=== PATIENT | female | born 1930 | race Caucasian/White ===

== ENCOUNTER 2016-10-08 13:23 | Inpatient (IN) | payer MEDICARE ==
[~2016-10-08] VITALS: Ht 175.3 cm; Wt 67.4 kg
[2016-10-08] MEDS ORDERED: IV NS 0.9% 1,000 ML BAG IV ONE (13:30)
[2016-10-08] MEDS ORDERED: IV SET PRIMARY 1 EA INFUS.SET MC ONE ×2 (13:37→15:28)
[2016-10-08] MEDS ORDERED: IV NS 0.9% 500 ML IV ONE ×2 (13:37→15:28)
[2016-10-08 14:21] LABS: INR 1.02 (0.87-1.13); PROTHROMBIN TIME 10.7 SECS (9.5-12.7)
[2016-10-08 14:23] LABS: ALBUMIN 2.9 g/dL (3.4-5.0); BILIRUBIN,DIRECT 0.1 mg/dL (0.0-0.2); BILIRUBIN,TOTAL 0.5 mg/dL (0.2-1.0); CALCIUM, SERUM 8.6 mg/dL (8.5-10.1); CREATININE 1.2 mg/dL (0.6-1.3); INDIRECT BILIRUBIN 0.4 mg/dL (0.0-1.1)
[2016-10-08 14:24] LABS: TROPONIN I 0.025 ng/mL (0.00-0.056)
[2016-10-08 14:45] LABS: BASOPHILS # (AUTO) 0.1 /CMM (0.0-0.2); BASOPHILS % (AUTO) 1.2 % (0.0-2.0); DIFF TOTAL % 100 %; EOSINOPHILS % (AUTO) 0.4 % (0.0-6.0); HEMATOCRIT 39 % (33-45); HEMOGLOBIN 12.6 g/dL (11.5-14.8); LYMPHOCYTES # (AUTO) 0.6 /CMM (0.8-4.8); LYMPHOCYTES % (AUTO) 5.9 % (20.0-44.0); MEAN CORPUSCULAR HEMOGLOBIN 26 PG (26.0-33.0); MEAN CORPUSCULAR HGB CONC 32 g/dl (31.0-36.0); MEAN CORPUSCULAR VOLUME 81 fL (82-100); MONOCYTES # (AUTO) 0.8 /CMM (0.1-1.30); MONOCYTES % (AUTO) 7.3 % (2.0-12.0); NEUTROPHILS # (AUTO) 9.5 /CMM (1.8-8.9); NEUTROPHILS % (AUTO) 85.2 % (43.0-81.0); PLATELET COUNT (AUTO) 173 /CMM (150-450); RED BLOOD CELL COUNT(AUTO) 4.84 MIL/uL (4.0-5.2)
[2016-10-08] MEDS ORDERED: IV NS 0.9% 500 ML BAG IV ONE (15:30)
[2016-10-08] MEDS ORDERED: IV NS 0.9% 250 ML IV ONE (16:01)
[2016-10-08] MEDS ORDERED: CT SWABBABLE VALVE TRANS SET 1 EA INFUS.SET MC ONE (16:01)
[2016-10-08] MEDS ORDERED: IOHEXOL-350 100 ML VIAL IV ONE (16:01)
[2016-10-08 16:16] LABS: KETONES,URINE 15 (NEGATIVE); LEUKOCYTE ESTERASE ,URINE Negative (NEGATIVE); PH,URINE 5.5 (5.0-8.0)
[2016-10-08 16:17] LABS: ADD UA MICROSCOPIC YES
[2016-10-08 16:21] LABS: ADD URINE CULTURE NO; WBC,URINE 0-2 /HPF (0-3)
[2016-10-08] MEDS ORDERED: IV SET PRIMARY PUMP SET 1 EA INFUS.SET MC ONE ×2 (17:27→21:16)
[2016-10-08] MEDS ORDERED: LEVOFLOXACIN 750 MG /D5W 150ML 150 ML IV ONE ×2 (17:27→17:30)
[2016-10-08 20:30] VITALS: BP 142/84
[2016-10-08] MEDS ORDERED: MAGNESIUM HYDROXIDE 30 ML UDC PO PRN (20:30)
[2016-10-08] MEDS ORDERED: ZOLPIDEM TARTRATE 5 MG TABLET PO PRN (20:30)
[2016-10-08] MEDS ORDERED: HYDROCODONE/APAP 5/325MG 1 EACH TABLET PO PRN (20:30)
[2016-10-08] MEDS ORDERED: Z GUARD REMEDY 2 OZ OINT TP PRN (20:30)
[2016-10-08] MEDS ORDERED: ONDANSETRON HCL/PF 4 MG/2 ML VIAL IVP PRN (20:30)
[2016-10-08] MEDS ORDERED: MAG HYDROX/AL HYDROX/SIMETH 30 ML UDC PO PRN (20:30)
[2016-10-08] MEDS ORDERED: ACETAMINOPHEN 325 MG TABLET PO PRN (20:30)
[2016-10-08] MEDS ORDERED: IV NS 0.9% 1,000 ML ONE (21:15)
[2016-10-08] MEDS ORDERED: LEVOFLOXACIN 500 MG /D5W 100ML 500 MG in PREMIX 1 EA IV SCH (21:30)
[2016-10-08] MEDS: IV NS 0.9% 1,000 ML IV PRN (21:43)
[2016-10-09] VITALS (7 sets, daily range): BP systolic 142–166; BP diastolic 82–90
[2016-10-09 08:33] LABS: BASOPHILS % (AUTO) 0.1 % (0.0-2.0); DIFF TOTAL % 100 %; EOSINOPHILS # (AUTO) 0.1 /CMM (0.0-0.7); EOSINOPHILS % (AUTO) 1.2 % (0.0-6.0); HEMATOCRIT 35 % (33-45); HEMOGLOBIN 11.6 g/dL (11.5-14.8); LYMPHOCYTES # (AUTO) 0.8 /CMM (0.8-4.8); LYMPHOCYTES % (AUTO) 9.6 % (20.0-44.0); MEAN CORPUSCULAR HEMOGLOBIN 26 PG (26.0-33.0); MEAN CORPUSCULAR HGB CONC 33 g/dl (31.0-36.0); MEAN CORPUSCULAR VOLUME 80 fL (82-100); MONOCYTES # (AUTO) 0.8 /CMM (0.1-1.30); MONOCYTES % (AUTO) 9.7 % (2.0-12.0); NEUTROPHILS # (AUTO) 6.7 /CMM (1.8-8.9); NEUTROPHILS % (AUTO) 79.4 % (43.0-81.0); PLATELET COUNT (AUTO) 165 /CMM (150-450); WHITE BLOOD COUNT (AUTO) 8.5 K/uL (4.3-11.0)
[2016-10-09 08:44] LABS: CALCIUM, SERUM 8.2 mg/dL (8.5-10.1); CREATININE 0.8 mg/dL (0.6-1.3); PHOSPHORUS 2.8 mg/dL (2.5-4.9); POTASSIUM 3.6 mmol/L (3.5-5.1)
[2016-10-09] MEDS: PANTOPRAZOLE 40 MG TABLET.DR PO SCH (10:02)
[2016-10-09] MEDS ORDERED: SECONDARY IV SET 1 EA INFUS.SET MC ONE (12:34)
[2016-10-09] MEDS: IV NS 0.9% 1,000 ML IV PRN (12:38)
[2016-10-09] MEDS ORDERED: Magnesium 1GM/D5W 100ML PREMIX PIGGYBACK IV ONE (13:00)
[2016-10-09] MEDS ORDERED: Magnesium 1GM/D5W 100ML PREMIX 100 ML IV SCH (13:00)
[2016-10-10] VITALS (8 sets, daily range): BP systolic 122–148; BP diastolic 68–93
[2016-10-10 07:04] LABS: CALCIUM, SERUM 8.4 mg/dL (8.5-10.1); CREATININE 0.8 mg/dL (0.6-1.3); POTASSIUM 3.3 mmol/L (3.5-5.1)
[2016-10-10] MEDS: PANTOPRAZOLE 40 MG TABLET.DR PO SCH (08:45)
[2016-10-10] MEDS ORDERED: LEVO500T15 PO (13:54)
[2016-10-10] MEDS ORDERED: PANT40TA2 PO (13:54)
[2016-10-10] MEDS ORDERED: POTASSIUM CHLORIDE 20 MEQ TAB.PRT.SR PO ONE (15:00)
[2016-10-10] MEDS ORDERED: LEVOFLOXACIN 750 MG /D5W 150ML 750 MG in PREMIX 1 EA IV SCH (21:00)
== END 2016-10-10 15:50 | disposition home health service (06) | DRG 193 ==
LOC: ER 13:25 → TELE 20:31
PROVIDERS: ADMIT Internal Medicine; ATTEND Internal Medicine
DX: J15.9 Unspecified bacterial pneumonia (principal); E43 Unspecified severe protein-calorie malnutrition; N17.0 Acute kidney failure with tubular necrosis; E87.6 Hypokalemia; I10 Essential (primary) hypertension; Z86.73 Personal history of transient ischemic attack (TIA), and cerebral infarction without residual deficits; E88.09 Other disorders of plasma-protein metabolism, not elsewhere classified; M62.50 Muscle wasting and atrophy, not elsewhere classified, unspecified site; Z68.21 Body mass index [BMI] 21.0-21.9, adult; Z90.49 Acquired absence of other specified parts of digestive tract; R55 Syncope and collapse; K44.9 Diaphragmatic hernia without obstruction or gangrene
CPT/HCPCS: 36415; 71010-TC; 80048-TC; 80061-TC; 80076-TC; 81000-TC; 82962-TC; 83605-TC; 83735-TC; 84100-TC; 84484-TC; 85025-TC; 85730-TC; 87040-TC; 87081-TC; 87400; 97001-TC; 97003-TC; 97116-TC; 97530-TC; A4216; J1956; J3475; J7030; J7040; J7050; Q9967; Z7610

== ENCOUNTER 2018-05-18 11:00 | Emergency (ER) | payer MEDICARE, OTHER ==
[~2018-05-18] VITALS: Ht 167.6 cm; Wt 63.5 kg
[~2018-05-18 11:00] MED LIST: LEVO500T75 PO; PANT40TA2 PO
[2018-05-18 11:05] VITALS: BP 155/84
--- NOTE | 2018-05-18 11:05 | NUR ---
PT BIB CAREGIVER TO ER BED 03. PRESENTS W// LFA SKIN TEAR AND R FOOT PAIN S/P FALL. PT STATES SHE THINKS SHE HAD LOTS OF ORANGE JUICE GOT DIZZY AND LOST BALANCE. PT DENIES KO. AAOX3. STABLE VITALS AWAITING MD GUSMAN.
--- NOTE | 2018-05-18 12:07 | NUR ---
CY GUERIN AT BEDSIDE FOR EVAL.
[2018-05-18] MEDS ORDERED: TDAP [DIPH/PERTUSSIS/TET] 0.5 ML VIAL IM ONE ×2 (12:24→12:30)
[2018-05-18] MEDS ORDERED: LIDOCAINE 1%-EPI 1:100,000 20 ML VIAL TP ONE (12:30)
[2018-05-18] MEDS ORDERED: LET SOLN TOPICAL 8 ML UDC TP ONE ×2 (12:47→19:00)
[2018-05-18] MEDS ORDERED: ACETAMINOPHEN ES 500 MG TABLET PO ONE (13:00)
[2018-05-18] MEDS ORDERED: LIDOCAINE 1%-EPI 1:100,000 20 ML VIAL ONE (13:32)
== END 2018-05-18 14:21 | disposition home or self-care (01) ==
LOC: ER 11:03
DX: S41.112A Laceration without foreign body of left upper arm, initial encounter (principal); I10 Essential (primary) hypertension; Z86.73 Personal history of transient ischemic attack (TIA), and cerebral infarction without residual deficits; W08.XXXA Fall from other furniture, initial encounter; Y93.89 Activity, other specified; Y92.092 Bedroom in other non-institutional residence as the place of occurrence of the external cause; Y99.8 Other external cause status
CPT/HCPCS: 12004; 90471; 90715; 99283; A4606; A6402; A6403; J3490; Z7610

== ENCOUNTER 2018-05-21 11:19 | Emergency (ER) | payer MEDICARE, OTHER ==
[~2018-05-21] VITALS: Ht 162.6 cm; Wt 58.1 kg
[2018-05-21 11:27] VITALS: BP 123/68
== END 2018-05-21 13:04 | disposition home or self-care (01) ==
LOC: ER 11:20
DX: S92.511A Displaced fracture of proximal phalanx of right lesser toe(s), initial encounter for closed fracture (principal); I10 Essential (primary) hypertension; Z86.73 Personal history of transient ischemic attack (TIA), and cerebral infarction without residual deficits; Z88.2 Allergy status to sulfonamides; X58.XXXA Exposure to other specified factors, initial encounter; Y93.89 Activity, other specified; Y92.89 Other specified places as the place of occurrence of the external cause; Y99.8 Other external cause status
CPT/HCPCS: 73630; 99284; A4606; Z7610

== ENCOUNTER → 2018-06-01 | Emergency (ER) | payer MEDICARE, OTHER ==
[~2018-06-01] VITALS: Ht 175.3 cm; Wt 65.8 kg
[2018-06-01 15:49] VITALS: BP 126/81
--- NOTE | 2018-06-01 16:32 | NUR ---
VERBAL DISCHARGE INSTRUCTIONS GIVEN BY PROVIDER, NO WRITTEN ACI NEEDED PER PROVIDER
== END | disposition home or self-care (01) ==
LOC: ER 15:45
DX: S51.812D Laceration without foreign body of left forearm, subsequent encounter (principal); I10 Essential (primary) hypertension; Z86.73 Personal history of transient ischemic attack (TIA), and cerebral infarction without residual deficits; Z88.2 Allergy status to sulfonamides; X58.XXXD Exposure to other specified factors, subsequent encounter
CPT/HCPCS: 99281; A4606; Z7502; Z7610

== ENCOUNTER 2018-12-12 22:34 | Inpatient (IN) | payer MEDICARE, OTHER ==
[~2018-12-12] VITALS: Ht 175.3 cm; Wt 62.6 kg
--- NOTE | 2018-12-12 22:34 | NUR ---
TO BED 1 BIB PARAMEDICS C/O SYNCOPE NOTED SCALP LACERATION TO POSTERIOR HEAD AND ORAL TRAUMA, FIELD BS 133. RECEIVE PT ON HARD CERVICAL COLLAR IN PLACE TAG MAKER. PT AAOX4 NO ACUTE DISTRESS NOTED, RESP EVEN AND UNLABORED. PUPILS PERRLA, PT ABLE TO MOVE ALL EXTREMITIES WELL WITH BILATERAL EQUAL HAND UMBRELLA TIPPER. PLACE PT ON CARDIAC MONITORING, CONTINUOUS POX. PENDING ER MD GUSMAN. CALL LIGHT WITHIN REACH.
--- NOTE | 2018-12-12 22:54 | NUR ---
ER MD AT BEDSIDE TO EVAL PT WITH ORDERS RECEIVED. WILL CARRY OUT ORDERS.
--- NOTE | 2018-12-12 23:11 | NUR ---
CALLED NURSING SUP. FOR TELE BED
--- NOTE | 2018-12-12 23:16 | NUR ---
ARC CUTTER PLASMA ARC AT BEDSIDE FOR BLOOD DRAW.
[2018-12-12] MEDS ORDERED: TDAP [DIPH/PERTUSSIS/TET] 0.5 ML VIAL IM ONE (23:30)
[2018-12-12 23:44] LABS: EOSINOPHILS % (AUTO) 6.5 % (0.0-6.0); HEMATOCRIT 37 % (33-45); LYMPHOCYTES # (AUTO) 1.5 /CMM (0.8-4.8); LYMPHOCYTES % (AUTO) 30.1 % (20.0-44.0); MEAN CORPUSCULAR HGB CONC 32 g/dl (31.0-36.0); MEAN CORPUSCULAR VOLUME 83 fL (82-100); MONOCYTES # (AUTO) 0.7 /CMM (0.1-1.30); NEUTROPHILS # (AUTO) 2.4 /CMM (1.8-8.9); NEUTROPHILS % (AUTO) 49.4 % (43.0-81.0); PLATELET COUNT (AUTO) 115 /CMM (150-450); RED BLOOD CELL COUNT(AUTO) 4.52 MIL/uL (4.0-5.2); WHITE BLOOD COUNT (AUTO) 4.9 K/uL (4.3-11.0)
--- NOTE | 2018-12-12 23:46 | NUR ---
PT WAS GIVEN TDAP ON PREVIOUS ADMISSION 05/18/2018.
[2018-12-12 23:52] LABS: CALCIUM, SERUM 8.9 mg/dL (8.5-10.1); CREATININE 1.1 mg/dL (0.6-1.3); GLUCOSE 118 mg/dL (74-106); UREA NITROGEN, BLOOD 28 mg/dL (7-18)
[2018-12-12 23:57] LABS: CARBON DIOXIDE 27 mmol/L (21-32); CHLORIDE 104 mmol/L (98-107); POTASSIUM 4.2 mmol/L (3.5-5.1); SODIUM SERUM 138 mmol/L (136-145)
[2018-12-13] MEDS ORDERED: IV NS 0.9% 500 ML BAG IV ONE (01:30)
[2018-12-13] MEDS ORDERED: ASPIRIN 81 MG TAB.CHEW PO ONE (01:30)
--- NOTE | 2018-12-13 01:55 | NUR ---
REPORT CALLED TO ENLISTED ADVISOR ARVI. WILL TRANSPORT PT VIA ACLS PROTOCOL.
[2018-12-13] MEDS ORDERED: ASPIRIN 81 MG TAB.CHEW ONE (02:12)
--- NOTE | 2018-12-13 02:16 | NUR ---
ER MD AT BEDSIDE TALKING TO PT REGARDING CT, LAB RESULTS AND HOSPITAL ADMISSION.
[2018-12-13 02:40] VITALS: BP 149/91
--- NOTE | 2018-12-13 02:40 | NUR ---
RECEIVED PATIENT FROM ER FOR DX SYNCOPE. AO X 3, ABLE TO MAKE NEEDS KNOWN. NO ACUTE DISTRESS NOTED. DENIES ANY PAIN AT THIS TIME. TELE READING SINUS RHYTHM. IV SITE PATENT, INTACT; FLUSHED. SKIN ASSESSMENT DONE. SAFETY REMINDERS GIVEN. ORIENTATION TO ROOM AND UNIT GIVEN TO PATIENT. ON LOW BED WITH BILATERAL UPPER SIDE RAILS UP. CALL MAYO WITHIN EASY REACH. WILL CONTINUE TO MONITOR.
[2018-12-13 02:45] VITALS: BP 149/91
[2018-12-13 04:00] VITALS: BP 110/73
--- NOTE | 2018-12-13 06:00 | NUR ---
PATIENT IN BED ASLEEP, EASILY AROUSABLE. RESPIRATIONS EVEN. NO SIGNS OF PAIN NOTED. NEEDS ATTENDED. SAFETY PRECAUTIONS AND COMFORT MEASURE IN PLACE. WILL GIVE REPORT TO DAY SHIFT FOR CONTINUITY OF CARE.
[2018-12-13] MEDS ORDERED: IV NS 0.9% 1,000 ML IV PRN (07:22)
[2018-12-13] MEDS ORDERED: PANTOPRAZOLE 40 MG TABLET.DR PO SCH (07:30)
--- NOTE | 2018-12-13 07:45 | NUR ---
Tele/RN - Assessment Patient awake, A/O x 3, admitted for Syncope/GLF, states feeling better, denies chest pain, no c/o dizziness, not in any form distress, tolerating room air, tele shows SR. Skin is intact except for BLE, BUE and chin bruising. Patient is ambulatory with assist/FWW. Started on NS at 125 ml/hr to maintain hydration. All needs attended. Fall and aspiration precautions maintained. Will continue with current medical management.
[2018-12-13 07:50] VITALS: BP_SYST 123; BP_SYST 134; BP_DIAS 63; BP_DIAS 64; BP_DIAS 82
[2018-12-13 08:00] VITALS: BP 134/82
[2018-12-13 08:01] LABS: BASOPHILS % (AUTO) 0.8 % (0.0-2.0); EOSINOPHILS % (AUTO) 4.6 % (0.0-6.0); HEMATOCRIT 33 % (33-45); LYMPHOCYTES # (AUTO) 0.9 /CMM (0.8-4.8); LYMPHOCYTES % (AUTO) 16.3 % (20.0-44.0); MEAN CORPUSCULAR HGB CONC 33 g/dl (31.0-36.0); MEAN CORPUSCULAR VOLUME 83 fL (82-100); MONOCYTES # (AUTO) 0.5 /CMM (0.1-1.30); MONOCYTES % (AUTO) 8.2 % (2.0-12.0); NEUTROPHILS # (AUTO) 3.9 /CMM (1.8-8.9); NEUTROPHILS % (AUTO) 70.1 % (43.0-81.0); PLATELET COUNT (AUTO) 113 /CMM (150-450); RED BLOOD CELL COUNT(AUTO) 4.05 MIL/uL (4.0-5.2); WHITE BLOOD COUNT (AUTO) 5.5 K/uL (4.3-11.0)
[2018-12-13 08:10] LABS: CALCIUM, SERUM 8.5 mg/dL (8.5-10.1); CARBON DIOXIDE 27 mmol/L (21-32); CHLORIDE 108 mmol/L (98-107); CREATININE 0.9 mg/dL (0.6-1.3); GLUCOSE 96 mg/dL (74-106); POTASSIUM 4.3 mmol/L (3.5-5.1); SODIUM SERUM 141 mmol/L (136-145); UREA NITROGEN, BLOOD 24 mg/dL (7-18)
[2018-12-13 08:16] LABS: ALBUMIN 3.1 g/dL (3.4-5.0); ALKALINE PHOSPHATASE 71 U/L (46-116); ASPARTATE AMINOTRANSFERASE 25 U/L (15-37); BILIRUBIN,TOTAL 0.3 mg/dL (0.2-1.0); MAGNESIUM 2.1 mg/dL (1.8-2.4); PHOSPHORUS 3.4 mg/dL (2.5-4.9)
[2018-12-13 08:33] LABS: ALANINE AMINOTRANSFERASE 20 U/L (12-78)
[2018-12-13] MEDS ORDERED: ASPIRIN 81 MG TAB.CHEW PO SCH (09:00)
[2018-12-13] MEDS ORDERED: TOBRAMYCIN/DEXAMETH OPHTH DORPS 2.5 ML BOTTLE EACHEYE SCH (10:26)
[2018-12-13] MEDS ORDERED: TOBR2.5D EACHEYE ×2 (10:46→10:47)
[2018-12-13] MEDS ORDERED: ATOR10TA PO (10:46)
--- NOTE | 2018-12-13 11:49 | NUR ---
Tele/RN - Discharge Patient discharged home in stable condition, afebrile, denies any weakness/dizziness, ambulatory with assist, no c/o chest pain, A/O x 4. Reviewed discharge instructions with patient and caregiver John both verbalized full understanding of all teachings including medications and follow-up care with her PCP in one to two weeks. Reviewed instructions to patient to seek immediate medical attention for worsening of symptoms, chest pain, shortness of breath, fever, confusion, weakness, fatigue, dizziness, or any other emergent medical concerns. All belongings with patient and she deny any missing items. Patient refused photos to be taken of skin. Saline lock on the RFA removed with catheter tip intact, no redness, no swelling at the site. Discharge paperwork signed and copies were given per protocol. Accompanied to the lobby via wheelchair by TRIM MACHINE OPERATOR and transported via private car with caregiver.
[2018-12-13] MEDS ORDERED: ATORVASTATIN 10 MG TABLET PO SCH (22:00)
== END 2018-12-13 11:59 | disposition home or self-care (01) | DRG 682 ==
LOC: ER 22:35 → TELE 12-13 01:39
PROVIDERS: ADMIT Nurse Practitioner Acute Care; ATTEND Nurse Practitioner Acute Care
DX: N17.9 Acute kidney failure, unspecified (principal); I21.A1 Myocardial infarction type 2; E86.0 Dehydration; I10 Essential (primary) hypertension; I25.10 Atherosclerotic heart disease of native coronary artery without angina pectoris; E78.5 Hyperlipidemia, unspecified; R32 Unspecified urinary incontinence; Z86.73 Personal history of transient ischemic attack (TIA), and cerebral infarction without residual deficits; K21.9 Gastro-esophageal reflux disease without esophagitis; J44.9 Chronic obstructive pulmonary disease, unspecified; Z88.2 Allergy status to sulfonamides; Z79.899 Other long term (current) drug therapy; I25.2 Old myocardial infarction; D69.6 Thrombocytopenia, unspecified; F03.90 Unspecified dementia, unspecified severity, without behavioral disturbance, psychotic disturbance, mood disturbance, and anxiety; H10.9 Unspecified conjunctivitis
CPT/HCPCS: 36415; 70450-TC; 71045-TC; 72125-TC; 80048-TC; 80053-TC; 83735-TC; 84100-TC; 84484-TC; 85025-TC; 85730-TC; 87081-TC; 93307-TC; A6402; A6403; G0378; J7030; J7040

== ENCOUNTER 2018-12-18 16:14 | Inpatient (IN) | payer MEDICARE, OTHER ==
[~2018-12-18] VITALS: Ht 175.3 cm; Wt 59.0 kg
[~2018-12-18 16:14] MED LIST changes: +ATOR10TA PO; -LEVO500T75 PO; +TOBR2.5D EACHEYE
--- NOTE | 2018-12-18 16:32 | NUR ---
BIB [facility], PT HAD SYNCOPAL EPISODE WITNESSED BY DAUGHTER, CPR INITIATED BY RELATIVE. EMS FOUND PT CONSCIOUS & ALERT. BG 82. PT AAOX3, VSS. DAUGHTER STS THAT PT HAD SAME EPISODE LAST NIGHT, CPR ALSO INITIATED BUT WHEN EMS GOT THERE PT DECLINED TO GO TO EMERGENCY ROOM. PT DENIES CP, SOB, DIZZINESS, N/V, WEAKNESS, NUMBNESS OR TINGLING SENSATION OR ANY OTHER DISCOMFORT. PLACED ON DIRECTOR TALENT MANAGEMENT. DR. JONES @ BS FOR EVAL. DAUGHTER @ BS & WILL CONT TO MONITOR.
[2018-12-18 16:56] LABS: BASOPHILS % (AUTO) 0.6 % (0.0-2.0); EOSINOPHILS % (AUTO) 3.8 % (0.0-6.0); HEMATOCRIT 35 % (33-45); HEMOGLOBIN 11.1 g/dL (11.5-14.8); LYMPHOCYTES # (AUTO) 1.2 /CMM (0.8-4.8); LYMPHOCYTES % (AUTO) 21.6 % (20.0-44.0); MEAN CORPUSCULAR HGB CONC 32 g/dl (31.0-36.0); MEAN CORPUSCULAR VOLUME 83 fL (82-100); MONOCYTES # (AUTO) 0.5 /CMM (0.1-1.30); MONOCYTES % (AUTO) 8.1 % (2.0-12.0); NEUTROPHILS # (AUTO) 3.8 /CMM (1.8-8.9); NEUTROPHILS % (AUTO) 65.9 % (43.0-81.0); PLATELET COUNT (AUTO) 101 /CMM (150-450); RED BLOOD CELL COUNT(AUTO) 4.16 MIL/uL (4.0-5.2); WHITE BLOOD COUNT (AUTO) 5.7 K/uL (4.3-11.0)
[2018-12-18] MEDS ORDERED: IV NS 0.9% 1,000 ML IV ONE (17:00)
[2018-12-18 17:05] LABS: CALCIUM, SERUM 8.5 mg/dL (8.5-10.1); CARBON DIOXIDE 26 mmol/L (21-32); CHLORIDE 107 mmol/L (98-107); CREATININE 1.1 mg/dL (0.6-1.3); GLUCOSE 113 mg/dL (74-106); SODIUM SERUM 140 mmol/L (136-145); UREA NITROGEN, BLOOD 25 mg/dL (7-18)
--- NOTE | 2018-12-18 17:58 | NUR ---
PT SITTING UP, SPEAKING TO HER FAMILY. RR EVEN & UNLABORED, NO RESP DISTRESS NOTED @ THIS TIME. PT ON AVICULTURIST, SR NO ECTOPY NOTED. WILL CONT TO MONITOR.
--- NOTE | 2018-12-18 18:23 | NUR ---
CALLED [employer] CURING OVEN TENDER WAS PAGED.
--- NOTE | 2018-12-18 18:45 | NUR ---
REPORT GIVEN TO ANY DANIELS AT [facility] FOR CONT OF CARE.
--- NOTE | 2018-12-18 19:19 | NUR ---
TELE/RN REPORT GIVEN TO ANY [place] FOR ANY MARIBEL.
[2018-12-18 20:00] VITALS: BP 130/79
[2018-12-18] MEDS ORDERED: ONDANSETRON HCL/PF 4 MG/2 ML VIAL IVP PRN (21:30)
[2018-12-18] MEDS ORDERED: HYDROCODONE/APAP 5/325MG 1 EACH TABLET PO PRN (21:30)
[2018-12-18] MEDS ORDERED: Z GUARD REMEDY 2 OZ OINT TP PRN (21:30)
[2018-12-18] MEDS ORDERED: MAGNESIUM HYDROXIDE 30 ML UDC PO PRN (21:30)
[2018-12-18] MEDS ORDERED: ZOLPIDEM TARTRATE 5 MG TABLET PO PRN (21:30)
[2018-12-18] MEDS ORDERED: MAG HYDROX/AL HYDROX/SIMETH 30 ML UDC PO PRN (21:30)
[2018-12-18] MEDS ORDERED: ACETAMINOPHEN 325 MG TABLET PO PRN (21:30)
[2018-12-18] MEDS: IBUPROFEN 400 MG TABLET PO PRN (23:09)
[2018-12-19] VITALS: BP 147/78
[2018-12-19 04:00] VITALS: BP 99/51
[2018-12-19] MEDS: IV NS 0.9% 1,000 ML IV PRN ×2 (05:22→18:25)
[2018-12-19 06:37] LABS: BASOPHILS % (AUTO) 0.2 % (0.0-2.0); EOSINOPHILS % (AUTO) 0.3 % (0.0-6.0); HEMATOCRIT 32 % (33-45); HEMOGLOBIN 10.4 g/dL (11.5-14.8); LYMPHOCYTES # (AUTO) 0.7 /CMM (0.8-4.8); LYMPHOCYTES % (AUTO) 8.2 % (20.0-44.0); MEAN CORPUSCULAR HGB CONC 33 g/dl (31.0-36.0); MEAN CORPUSCULAR VOLUME 82 fL (82-100); MONOCYTES # (AUTO) 0.6 /CMM (0.1-1.30); MONOCYTES % (AUTO) 6.4 % (2.0-12.0); NEUTROPHILS # (AUTO) 7.5 /CMM (1.8-8.9); NEUTROPHILS % (AUTO) 84.9 % (43.0-81.0); PLATELET COUNT (AUTO) 95 /CMM (150-450); RED BLOOD CELL COUNT(AUTO) 3.85 MIL/uL (4.0-5.2); WHITE BLOOD COUNT (AUTO) 8.8 K/uL (4.3-11.0)
[2018-12-19 06:56] LABS: ALANINE AMINOTRANSFERASE 45 U/L (12-78); ALBUMIN 2.7 g/dL (3.4-5.0); ALKALINE PHOSPHATASE 75 U/L (46-116); ASPARTATE AMINOTRANSFERASE 37 U/L (15-37); BILIRUBIN,TOTAL 0.5 mg/dL (0.2-1.0); CALCIUM, SERUM 8.2 mg/dL (8.5-10.1); CARBON DIOXIDE 23 mmol/L (21-32); CHLORIDE 107 mmol/L (98-107); CREATININE 0.9 mg/dL (0.6-1.3); GLUCOSE 99 mg/dL (74-106); PHOSPHORUS 3.6 mg/dL (2.5-4.9); POTASSIUM 4.1 mmol/L (3.5-5.1); SODIUM SERUM 141 mmol/L (136-145); TOTAL PROTEIN, SERUM 5.6 g/dL (6.4-8.2); UREA NITROGEN, BLOOD 22 mg/dL (7-18)
[2018-12-19 06:58] LABS: CHOLESTEROL 136 mg/dL (<200); HDL CHOLESTEROL 71 mg/dL (40-60); LDL 60 mg/dL (0-99); TRIGLYCERIDES 26 mg/dL (30-150)
--- NOTE | 2018-12-19 07:45 | NUR ---
RN NOTE RECVD PATIENT AWAKE ALERT AND ORIENTED X4, NIECE AT BEDSIDE. PATIENT BREATHING EVEN AND UNLABORED WITH NO DISTRESS NOTED. ON CONTINUOUS O2 OF 2LPM VIA NC. ON MEDICARE NURSE HR OF 84. NOTED WITH MULTIPLE BRUISING ON UPPER EXTREMITY. SKIN IS WARM TO TOUCH. IV SITE INTACT AND PATENT WITH ONGOING IV FLUIDS ORDERED. BED LOW AND LOCKED POSITION. ALL SAFETY MEASURES DONE. WILL CONTINUE TO MONITOR CLOSELY.
[2018-12-19 08:00] VITALS: BP 105/58
[2018-12-19 08:01] LABS: LYMPHOCYTES % (MANUAL) 2 % (16-48); MONOCYTES % (MANUAL) 7 % (0-11.0); NEUTROPHILS % (MANUAL) 91 (42-76)
[2018-12-19] MEDS ORDERED: ASPIRIN 81 MG TAB.CHEW PO SCH (09:00)
--- NOTE | 2018-12-19 09:30 | NUR ---
RN NOTE ASA 162 MG GIVEN TO PATIENT Q DAILY. WELL TOLERATED.
[2018-12-19] MEDS ORDERED: ROSU5TAB PO (09:53)
[2018-12-19] MEDS ORDERED: ASPI-605 PO (09:53)
[2018-12-19] MEDS ORDERED: PEG15DRO4 EACHEYE (09:53)
[2018-12-19 12:00] VITALS: BP 111/53
--- NOTE | 2018-12-19 14:04 | NUR ---
RN NOTE U/S TECH AT BEDSIDE FOR ECHO
[2018-12-19] MEDS: IBUPROFEN 400 MG TABLET PO PRN (15:34)
[2018-12-19 16:00] VITALS: BP 127/76
[2018-12-19 20:00] VITALS: BP_SYST 105; BP_DIAS 61; BP_DIAS 65
[2018-12-20] VITALS (17 sets, daily range): BP systolic 80–164; BP diastolic 41–92
[2018-12-20] MEDS: IV NS 0.9% 1,000 ML IV PRN (05:43)
[2018-12-20 07:26] LABS: ABG BASE EXCESS -3.4 mmol/L; ABG OXYGEN SATURATION 93.6 % (92.0-98.5); ABG PCO2 41.5 mmHg (35.0-45.0); ABG PH 7.344 (7.350-7.450); ABG PO2 74.3 mmHg (75.0-100.0); AaDO2 307.9 mmHg; COHb 0.5 % (0.5-1.5); MetHb 0.6 % (0.0-1.5); O2Hb 92.6 % (94.0-97.0); SITE, ABG Right Radial; VENT MODE, BG SIMPLE MASK
[2018-12-20] MEDS ORDERED: FUROSEMIDE 40 MG/4 ML VIAL IV SCH (09:00)
--- NOTE | 2018-12-20 09:30 | NUR ---
RN NOTE CHANGED PATIENT FROM MASK AT 10L TO NASAL CANULA AT 5L. SATING 96-97%
--- NOTE | 2018-12-20 10:30 | NUR ---
RN NOTE PATIENT DESATURATED WHILE GOING TO RESTROOM. OXYGEN SATURATIONS IN LOW 70'S. PER DR PUENTE TRANSFER TO ICU.
[2018-12-20] MEDS: FUROSEMIDE 40 MG/4 ML VIAL IV SCH ×3 (11:34→18:51)
--- NOTE | 2018-12-20 13:56 | NUR ---
RN NOTE 1300: Received patient from Tele 1st floor, per report needs ICU monitoring for episode of desat while going to bathroom. VSS at this time. Accompanied by nisara. With RFA PIV, placed another PIV on LFA. on 5LPM of O2 via NC, 98% sat at this time, awaiting [facility] bed availability. POP Ram helped on placing Garrido cath per patient's request. 1355: S/E by Dr. Christianson, family and friend() at bedside. CM is updated re: patient's transfer to ICU, they are still ff; up for bed availability.
[2018-12-20 16:35] LABS: APPEARANCE,URINE CLEAR (CLEAR); BILIRUBIN,URINE NEGATIVE (NEGATIVE); BLOOD, URINE TRACE Ery/uL (NEGATIVE); COLOR,URINE YELLOW (YELLOW); KETONES,URINE NEGATIVE (NEGATIVE); LEUKOCYTE ESTERASE ,URINE NEGATIVE (NEGATIVE); NITRITE, URINE NEGATIVE (NEGATIVE); PH,URINE 5.5 (5.0-8.0); PROTEIN,URINE NEGATIVE (NEGATIVE); UGLUCOSE NEGATIVE (NEGATIVE); UROBILINOGEN,URINE 0.2 EU/dL (0.2)
[2018-12-20 16:48] LABS: BACTERIA,URINE Many /HPF (None Seen); SQUAMOUS EPITHELIAL CELL,UR Few /HPF (None Seen)
--- NOTE | 2018-12-20 18:52 | NUR ---
RN NOTE Patient resting well, tolerated 5LPM of O2 via NC. Garrido cath intact. No episode of syncope noted. Patient and family aware for the POC, still awaiting bed availability in [facility].
[2018-12-20] MEDS: IBUPROFEN 400 MG TABLET PO PRN (19:55)
--- NOTE | 2018-12-20 20:06 | NUR ---
ICU/DIGITAL MEDIA SPECIALIST PT COMPLAINED ABOUT PAIN, GAVE MOTRIN UPON REQUEST FROM PT. PT WAS TURNED AND REPOSITIONED FOR COMFORT AND CARE. WILL CONTINUE TO MONITOR THIS PT.
--- NOTE | 2018-12-20 21:20 | NUR ---
ICU/GAMING INVESTIGATOR FAMILY AT BEDSIDE, GOOD FAMILY SUPPORT. NIECE TO STAY WITH PT OVER NIGHT. ACCOMMODATIONS MADE TO MAKE FAMILY COMFORTABLE.
--- NOTE | 2018-12-20 22:20 | NUR ---
ICU/MOBILE ELECTRONICS INSTALLER PT APPEARS TO BE COMFORTABLE. MOTRIN APPEARS TO BE EFFECTIVE WHICH WAS GIVEN EARLIER. WILL CONTINUE TO MONITOR THIS PT'S PAIN.
[2018-12-21] VITALS (17 sets, daily range): BP systolic 82–123; BP diastolic 42–76
--- NOTE | 2018-12-21 00:45 | NUR ---
ICU/WORKPLACE RELATIONS ADVISER CEDERS CALLED ASKED FOR UPDATE ON THIS PT. THEN SAID THAT THE PT IS ON THE LIST, AND AT THIS TIME THERE IS NO BEDS AVAILABLE. THIS INFORMATION WAS PASSED ON TO SOCIAL SCIENCES RESEARCH SCIENTIST CHARGE NURSE.
--- NOTE | 2018-12-21 02:52 | NUR ---
ICU/BOOK COVERER PT APPEARS TO BE COMFORTABLY ASLEEP WITH NO ACUTE DISTRESS SEEN AT THIS TIME. PT'S CALL LIGHT WITHIN REACH. WILL CONTINUE TO MONITOR THIS PT.
[2018-12-21 04:29] LABS: BASOPHILS # (AUTO) 0.1 /CMM (0.0-0.2); BASOPHILS % (AUTO) 0.7 % (0.0-2.0); EOSINOPHILS % (AUTO) 0.7 % (0.0-6.0); HEMATOCRIT 40 % (33-45); HEMOGLOBIN 12.9 g/dL (11.5-14.8); LYMPHOCYTES # (AUTO) 0.9 /CMM (0.8-4.8); LYMPHOCYTES % (AUTO) 8.8 % (20.0-44.0); MEAN CORPUSCULAR HGB CONC 33 g/dl (31.0-36.0); MEAN CORPUSCULAR VOLUME 82 fL (82-100); MONOCYTES % (AUTO) 9.5 % (2.0-12.0); NEUTROPHILS # (AUTO) 8.4 /CMM (1.8-8.9); NEUTROPHILS % (AUTO) 80.3 % (43.0-81.0); PLATELET COUNT (AUTO) 113 /CMM (150-450); WHITE BLOOD COUNT (AUTO) 10.5 K/uL (4.3-11.0)
[2018-12-21 04:43] LABS: ALANINE AMINOTRANSFERASE 34 U/L (12-78); ALBUMIN 3.1 g/dL (3.4-5.0); ALKALINE PHOSPHATASE 85 U/L (46-116); ASPARTATE AMINOTRANSFERASE 22 U/L (15-37); BILIRUBIN,TOTAL 0.6 mg/dL (0.2-1.0); CALCIUM, SERUM 9.2 mg/dL (8.5-10.1); CARBON DIOXIDE 28 mmol/L (21-32); CHLORIDE 102 mmol/L (98-107); CREATININE 1.3 mg/dL (0.6-1.3); GLUCOSE 93 mg/dL (74-106); MAGNESIUM 1.9 mg/dL (1.8-2.4); PHOSPHORUS 3.9 mg/dL (2.5-4.9); POTASSIUM 3.4 mmol/L (3.5-5.1); SODIUM SERUM 142 mmol/L (136-145); UREA NITROGEN, BLOOD 29 mg/dL (7-18)
--- NOTE | 2018-12-21 06:00 | NUR ---
ICU/SKIP HOIST OPERATOR MD ROJO CAME PLACED ORDERS. THESE WERE NOTED AND CARRIED OUT.
[2018-12-21] MEDS: FUROSEMIDE 40 MG/4 ML VIAL IV SCH ×3 (06:49→14:19)
[2018-12-21] MEDS: POTASSIUM CHLORIDE 20 MEQ TAB.PRT.SR PO SCH ×2 (06:51→08:29)
[2018-12-21] MEDS: PANTOPRAZOLE 40 MG TABLET.DR PO SCH (06:53)
--- NOTE | 2018-12-21 07:00 | NUR ---
ICU/REFUELER CALLED MD ROJO ABOUT LOVENOX WITH BLOOD IN [place], SAID TO D/C THIS. THIS WAS CARRIED OUT.
--- NOTE | 2018-12-21 07:15 | NUR ---
RN INITIAL NOTES RECEIVED PT AWAKE, A/OX3. ON 02 AT 5LPM VIA NC. NO RESPIRATORY DISTRESS NOTED. DENIES ANY PAIN. IV LINES IN PLACE. FC IN PLACE. HEMATURIA NOTED. PT COMFORTABLE. CALL LIGHT WITHIN REACH. PT WAITING FOR AVAILABLE ROOM AT [facility] FOR TAVR. WILL COORDINATE WITH THREAD MARKER. SHERI AT BEDSIDE. WILL MONITOR
--- NOTE | 2018-12-21 07:33 | NUR ---
ICU/BLOCKER AUTOMATIC EARLY AM ORDERS WERE CARRIED OUT, AND NOTED. REPORT GIVEN TO DAY NURSE. AWAITING POSSIBLE TRANSFER TO [facility] FOR TAVR.
[2018-12-21] MEDS: ASPIRIN 81 MG TAB.CHEW PO SCH (08:29)
[2018-12-21] MEDS ORDERED: ENOXAPARIN SODIUM 40 MG/0.4 ML DISP.SYRIN SQ SCH (09:00)
--- NOTE | 2018-12-21 09:00 | NUR ---
RN NOTES SEEN AND EXAMINED BY DR THOMPSON. AWARE OF LAB VALUES AND CXR RESULT. POTASSIUM REPLACED. PT SEEN BY DR PUENTE AND AWARE OF LAB VALUES TOO. PT STILL HAS HEMATURIA. MD CLEARED PT TO DOWNGRADE, DR PUENTE NOTIFIED. WILL CONTINUE MONITOR
--- NOTE | 2018-12-21 11:15 | NUR ---
RN NOTES TRANSFERRED PT TO ROOM 113-2. PT A/OX3-4. NO RESPIRATORY DISTRESS NOTED. DENIES ANY PAIN. VS WNL. NIECE AT BEDSIDE. ANY PETTY TOOK OVER PT'S CARE.
--- NOTE | 2018-12-21 11:17 | NUR ---
RN NOTE Received patient awake, A/Ox2, noted with hematuria, Garrido was flushed by previous nurse, will continue to monitor. Awaiting [facility] bed availability, CM waiting for update. Family at bedside. Placed on monitor, SR 90's.
--- NOTE | 2018-12-21 13:34 | NUR ---
RN NOTE 1130: BP 88/47, placed HOB lower. 1145: BP 101/57. Patient has no c/o dizziness. 1300: Lunch offered but patient is resting, left tray at bedside for now.
--- NOTE | 2018-12-21 17:54 | NUR ---
RN NOTE Patient awake, A/Ox3. Kept clean, warm and dry. Family at bedside. Call light at reach. No significant changes noted at this time.
--- NOTE | 2018-12-21 19:45 | NUR ---
AMY/CANE WEIGHER RECEIVED REPORT FROM DAY NURSE. SEE FLOW SHEET FOR ASSESSMENT AND ANY SKIN ISSUES WHICH ARE ADDRESSED ALONG WITH THEIR INTERVENTIONS. PT WAS TURNED AND REPOSITIONED FOR COMFORT AND CARE. NO ACUTE DISTRESS SEEN AT THIS TIME. WILL CONTINUE TO MONITOR THIS PT.
--- NOTE | 2018-12-21 22:30 | NUR ---
AMY/BOWLING BALL MOLD ASSEMBLER FAMILY MEMBER AT BEDSIDE, SLEEPER CHAIR WAS MADE TO ACCOMMODATE THE FAMILY MEMBER TO SLEEP OVER, PER PT'S REQUEST. PT WAS TURNED AND REPOSITIONED FOR COMFORT AND CARE. O2 VIA N/C WAS PLACED ON PT, PER FAMILY REQUEST BECAUSE PT WAS TO BE GOING TO BED NOW.
--- NOTE | 2018-12-21 23:51 | NUR ---
AMY/CAMERA MACHINIST FAMILY MEMBERS AT BEDSIDE DECLINE MIDNIGHT VITAL SIGNS, "SHE NEEDS TO SLEEP, AND GET HER REST." WILL TRY AGAIN LATER ON IN THE MORNING. PT AT THIS TIME DID NOT APPEAR TO BE IN ACUTE DISTRESS. WILL CONTINUE TO MONITOR THIS PT.
--- NOTE | 2018-12-22 02:40 | NUR ---
AMY/SAMIR SHANE CALLED ASKED FOR AN UPDATE ON THIS PT. ALSO SAID PT IS TO BE TRANSFERRED ON MONDAY NIGHT FOR PROCEDURE OF TAVR ON MONDAY.
[2018-12-22 04:00] VITALS: BP 117/70
[2018-12-22 06:22] LABS: BASOPHILS # (AUTO) 0.1 /CMM (0.0-0.2); BASOPHILS % (AUTO) 0.8 % (0.0-2.0); EOSINOPHILS % (AUTO) 1.6 % (0.0-6.0); HEMATOCRIT 42 % (33-45); HEMOGLOBIN 13.7 g/dL (11.5-14.8); LYMPHOCYTES # (AUTO) 1.2 /CMM (0.8-4.8); LYMPHOCYTES % (AUTO) 14.2 % (20.0-44.0); MEAN CORPUSCULAR HGB CONC 33 g/dl (31.0-36.0); MEAN CORPUSCULAR VOLUME 81 fL (82-100); MONOCYTES # (AUTO) 0.8 /CMM (0.1-1.30); MONOCYTES % (AUTO) 8.7 % (2.0-12.0); NEUTROPHILS # (AUTO) 6.5 /CMM (1.8-8.9); NEUTROPHILS % (AUTO) 74.7 % (43.0-81.0); PLATELET COUNT (AUTO) 153 /CMM (150-450); WHITE BLOOD COUNT (AUTO) 8.8 K/uL (4.3-11.0)
[2018-12-22 06:33] LABS: ALANINE AMINOTRANSFERASE 28 U/L (12-78); ALBUMIN 3.1 g/dL (3.4-5.0); ALKALINE PHOSPHATASE 84 U/L (46-116); ASPARTATE AMINOTRANSFERASE 15 U/L (15-37); BILIRUBIN,TOTAL 0.5 mg/dL (0.2-1.0); CALCIUM, SERUM 9.4 mg/dL (8.5-10.1); CARBON DIOXIDE 29 mmol/L (21-32); CHLORIDE 102 mmol/L (98-107); CREATININE 1.5 mg/dL (0.6-1.3); GLUCOSE 104 mg/dL (74-106); MAGNESIUM 2.2 mg/dL (1.8-2.4); PHOSPHORUS 4.5 mg/dL (2.5-4.9); POTASSIUM 3.9 mmol/L (3.5-5.1); SODIUM SERUM 141 mmol/L (136-145); TOTAL PROTEIN, SERUM 7.4 g/dL (6.4-8.2); UREA NITROGEN, BLOOD 51 mg/dL (7-18)
--- NOTE | 2018-12-22 07:00 | NUR ---
AMY/OFFICE MACHINE INSPECTOR PT HAD A SMALL RUN OF COUPLETS. PT WAS NON SYSTEMATIC. WILL CONTINUE TO MONITOR THIS PT.
--- NOTE | 2018-12-22 07:35 | NUR ---
RN NOTE: RECEIVED PATIENT IN BED, AWAKE, ALERT AND VERBALLY RESPONSIVE. DAUGHTER PRESENT AT THE BEDSIDE. RESPIRATION EVEN AND UNLABORED NOTED WITH O2 5L/MIN VIA NC SATURATING 97%. DENIED ANY PAIN AT THIS TIME. HOB ELEVATED. BED ALARMED AND LOCKED AT ALL TIMES. (R) FOREARM AND (L) FOREARM IV SITE NOTED PATENT AND INTACT. CALL LIGHT WITHIN REACH. NEEDS ANTICIPATED.
[2018-12-22 08:00] VITALS: BP 115/66
[2018-12-22] MEDS: PANTOPRAZOLE 40 MG TABLET.DR PO SCH (08:10)
[2018-12-22] MEDS: ASPIRIN 81 MG TAB.CHEW PO SCH (08:10)
--- NOTE | 2018-12-22 10:05 | NUR ---
RN NOTE: DR. JOHNSON MADE ROUNDS AND SAW THE PATIENT IN THE ROOM. SPOKE WITH PATIENT'S DAUGHTER. INFORMED HIM ABOUT THE PLAN OF TRANSFER TO [facility] BY TOMORROW PER IRRIGATING PUMP OPERATOR FOR THE TAVR PROCEDURE ON MONDAY. THE ACCEPTING MD WAS DR. ORNELAS. PATIENT AND PATIENT'S DAUGHTER HAS NO QUESTIONS AT THIS TIME.
[2018-12-22 12:00] VITALS: BP_SYST 94; BP_DIAS 55; BP_DIAS 58
[2018-12-22 16:00] VITALS: BP 109/66
--- NOTE | 2018-12-22 19:44 | NUR ---
RN NOTE: PATIENT ON STABLE CONDITION. NIECE AND CAREGIVER PRESENT AT THE BEDSIDE. REPORT AT BEDSIDE GIVEN TO THE PM SHIFT NURSE FOR CONTINUITY OF CARE.
[2018-12-22 20:00] VITALS: BP 95/46
--- NOTE | 2018-12-22 20:00 | NUR ---
RN NOTE: RECEIVED PATIENT'S BEDSIDE REPORT FROM AM RN. PATIENT IS IN BED, AWAKE, ALERT , ORIENTEDX3 AND VERBALLY RESPONSIVE. FAMILY MEMBER PRESENT AT THE BEDSIDE. RESPIRATION IS EVEN AND UNLABORED WITH O2 2L/MIN VIA NC SATURATING 95%. PATIENT IS SR ON FUNDRAISING DIRECTOR. PATIENT COMPLAINT OF PAIN 2/10 ON HER LEFT LOWER RIBS WITH DEEP BREATHING AND REPOSITIONING BUT REFUSING ANY PAIN MEDICATION AND SAID THAT IT'S TOLERABLE LEVEL AND INACTIVITY HELPS WITH THE PAIN . HOB ELEVATED AT 35 DEGREE. BED ALARMED AND LOCKED AT ALL TIMES. (R) FOREARM AND (L) FOREARM IV SITE NOTED PATENT AND INTACT. CALL LIGHT WITHIN REACH. NEEDS ANTICIPATED.WILL CONTINUE TO MONITOR PATIENT CLOSELY.
[2018-12-23] VITALS: BP 122/70
[2018-12-23 04:00] VITALS: BP 104/70
--- NOTE | 2018-12-23 06:49 | NUR ---
carmen rn closing notes Patient is in bed with family member at the bedside, on NC 2L O2 with spo2>95%. patient is A/A/Ox3, no complaint of pain and discomfort at this time. SR on gambling monitor. FC is in place draining tea color urine on gravity. right forearm and left forearm iv lines are intact and patient. patient has been kept dry and clean, repositioned q2hr. all safety measures and patient's needs are attended. bed in lowest, locked position, call light in reach. patient's bedside report will be given to am shift RN for senior office support assistant sosa.
[2018-12-23 06:59] LABS: CREATININE, URINE 107.6 MG/DL (30.0-125.0); URINE TOTAL PROTEIN 39.8 mg/dL (0-11.9)
[2018-12-23 07:14] LABS: BASOPHILS % (AUTO) 0.6 % (0.0-2.0); EOSINOPHILS % (AUTO) 6.1 % (0.0-6.0); HEMATOCRIT 40 % (33-45); LYMPHOCYTES % (AUTO) 13.9 % (20.0-44.0); MEAN CORPUSCULAR HGB CONC 33 g/dl (31.0-36.0); MEAN CORPUSCULAR VOLUME 81 fL (82-100); MONOCYTES # (AUTO) 0.8 /CMM (0.1-1.30); MONOCYTES % (AUTO) 10.9 % (2.0-12.0); NEUTROPHILS # (AUTO) 4.9 /CMM (1.8-8.9); NEUTROPHILS % (AUTO) 68.5 % (43.0-81.0); PLATELET COUNT (AUTO) 157 /CMM (150-450); RED BLOOD CELL COUNT(AUTO) 4.91 MIL/uL (4.0-5.2); WHITE BLOOD COUNT (AUTO) 7.1 K/uL (4.3-11.0)
[2018-12-23 07:24] LABS: ALANINE AMINOTRANSFERASE 24 U/L (12-78); ALBUMIN 2.8 g/dL (3.4-5.0); ALKALINE PHOSPHATASE 77 U/L (46-116); ASPARTATE AMINOTRANSFERASE 15 U/L (15-37); BILIRUBIN,TOTAL 0.5 mg/dL (0.2-1.0); CALCIUM, SERUM 9.2 mg/dL (8.5-10.1); CARBON DIOXIDE 30 mmol/L (21-32); CHLORIDE 101 mmol/L (98-107); GLUCOSE 102 mg/dL (74-106); MAGNESIUM 2.3 mg/dL (1.8-2.4); POTASSIUM 3.7 mmol/L (3.5-5.1); SODIUM SERUM 139 mmol/L (136-145); TOTAL PROTEIN, SERUM 6.8 g/dL (6.4-8.2); UREA NITROGEN, BLOOD 53 mg/dL (7-18)
[2018-12-23 07:49] LABS: BILIRUBIN,URINE NEGATIVE (NEGATIVE); BLOOD, URINE 3+ Ery/uL (NEGATIVE); COLOR,URINE YELLOW (YELLOW); KETONES,URINE NEGATIVE (NEGATIVE); LEUKOCYTE ESTERASE ,URINE 1+ (NEGATIVE); NITRITE, URINE POSITIVE (NEGATIVE); PH,URINE 5.5 (5.0-8.0); PROTEIN,URINE 1+ mg/dl (NEGATIVE); UGLUCOSE NEGATIVE (NEGATIVE); UROBILINOGEN,URINE 0.2 EU/dL (0.2)
[2018-12-23 07:52] LABS: APPEARANCE,URINE CLOUDY (CLEAR)
[2018-12-23] MEDS: PANTOPRAZOLE 40 MG TABLET.DR PO SCH (07:53)
[2018-12-23 08:00] VITALS: BP 119/78
[2018-12-23 08:19] LABS: RBC,URINE 81-100 /HPF (0-2)
[2018-12-23 08:21] LABS: BACTERIA,URINE Many /HPF (None Seen); SQUAMOUS EPITHELIAL CELL,UR Rare /HPF (None Seen); URINE AMORPHOUS URATE Many /HPF (None Seen)
[2018-12-23] MEDS ORDERED: FUROSEMIDE 20 MG TABLET PO SCH (09:00)
[2018-12-23] MEDS: ASPIRIN 81 MG TAB.CHEW PO SCH (09:11)
[2018-12-23 10:18] LABS: EOSINOPHIL,URINE None Seen
--- NOTE | 2018-12-23 11:59 | NUR ---
Patient family refuses 1200 vital signs because patient is resting. Manav Bueno RN Addendum: 12/23/18 at 1700 by MANAV BUENO RN Amended: Links added.
[2018-12-23] MEDS ORDERED: POTASSIUM CHLORIDE 20 MEQ POWDER PACKET PO ONE (12:00)
[2018-12-23 16:00] VITALS: BP 100/65
--- NOTE | 2018-12-23 16:00 | NUR ---
Patient refuses 1600 vital signs says she wants to rest. Manav Bueno RN Addendum: 12/23/18 at 1700 by MANAV BUENO RN Amended: Links added. Addendum: 12/23/18 at 1713 by MANAV BUENO RN Patient accepts vital signs at this time. ANY Paiz
[2018-12-23 17:13] VITALS: BP 100/65
--- NOTE | 2018-12-23 19:51 | NUR ---
HANDOFF TO NIGHT NURSE CATRACHO Landrum RN. IVETH LEWIS RN
--- NOTE | 2018-12-23 19:52 | NUR ---
TELE/RN NOTES RECEIVED PT. LYING IN BED. PT. IS AWAKE, ALERT AND ORIENTED X3. BREATHING EVEN AND UNLABORED ON ROOM AIR. NO SOB, RESPIRATORY DISTRESS OR COMPLAINTS OF PAIN NOTED AT THIS TIME. PT. WITH EXTERNAL APPLICATION INTEGRATION ENGINEER PRESENT AND INTACT. CURRENT RHYTHM = SINUS RHYTHM WITH PVC'S HR 92. PT. WITH LEFT FOREARM 20 GAUGE IV SALINE LOCK PRESENT, PATENT AND INTACT. PT. WITH RIGHT FOREARM 20 GAUGE IV SALINE LOCK PRESENT, PATENT AND INTACT. PT. WITH [place] CATHETER PRESENT, PATENT AND INTACT DRAINING YELLOW URINE. PT. WITH FAMILY MEMBER PRESENT AT BEDSIDE. PER DAYSHIFT NURSE PT. IS AWAITING TRANSFER TO [facility] PT. NEEDS A TAVR PROCEDURE, WAITING FOR A BED TO BE AVAILABLE. BED LOCKED AND IN LOWEST POSITION, SIDE RAILS UP X2, BED ALARM ON, CALL LIGHT WITHIN REACH, WILL CONTINUE TO MONITOR.
[2018-12-23 20:00] VITALS: BP 99/55
--- NOTE | 2018-12-23 20:26 | NUR ---
TELE/RN NOTES RECEIVED CALL FROM BRENDEN AT [facility] STATING THAT A BED IS AVAILABLE FOR THE PT. PT. WILL BE GOING TO ROOM 5129 THE ACCEPTING MD IS MD MAC. BRENDEN STATED TO CALL AND GIVE REPORT 30-60 MIN BEFORE PT. IS PICKED UP BY TRANSPORT. WILL NOTIFY [facility] GIFT OFFICER AND CHARGE NURSE. WILL CONTINUE TO MONITOR.
--- NOTE | 2018-12-23 21:44 | NUR ---
TELE/RN NOTES NOTIFIED EPIC CONSTRUCTION SERVICES TECHNICIAN LAKSHMI HURT THAT BED IS AVAILABLE FOR THE PT. AT [facility]. TRANSPORT HAS BEEN ARRANGED AND PT. WILL BE PICKED UP AT 2230. PT. DISCHARGE MEDICATIONS NEED TO BE RECONCILED. PER LAKSHMI HURT CONTINUE ALL CURRENT MEDICATIONS. WILL CARRY OUT ORDERS. WILL CONTINUE TO MONITOR.
--- NOTE | 2018-12-23 21:50 | NUR ---
TELE/RN NOTES CALLED [facility] TO GIVE REPORT ON PT. ACCEPTING RN NESHA STATED SHE WAS BUSY AND WILL CALL BACK FOR REPORT. WILL CONTINUE TO MONITOR.
--- NOTE | 2018-12-23 22:28 | NUR ---
TELE/RN NOTES RECEIVED CALL FROM ANY JEFFRIES AT [facility] FOR REPORT ON THE PT. GAVE REPORT TO ANY JEFFRIES. NOTIFIED HER THAT TRANSPORT IS SCHEDULED FOR 2229. WILL CALL AND NOTIFY HER WHEN AMBULANCE ARRIVES AND PT. IS LEAVING. WILL CONTINUE TO MONITOR.
--- NOTE | 2018-12-23 23:13 | NUR ---
TELE/RN NOTES PT. IS IN STABLE CONDITION. NO SOB, RESPIRATORY DISTRESS OR COMPLAINTS OF PAIN NOTED AT THIS TIME. PT. TRANSFER PAPERWORK SIGNED, ORIGINAL PLACED IN PT. CHART COPY PROVIDED TO PT. PT. EXITCARE AND BELONGINGS LIST COMPLETED ORIGINAL SIGNED AND PLACED IN PT. CHART. PT. REFUSED DISCHARGE PHOTOS. PT. IS BEING TRANSFERRED WITH IV ACCESS INTACT. PT. WITH RIGHT FOREARM 20 GAUGE IV SALINE LOCK PRESENT, PATENT AND INTACT. PT. WITH LEFT FOREARM 20 GAUGE IV SALINE LOCK PRESENT, PATENT AND INTACT. PT. WITH [place] CATHETER PRESENT, PATENT AND INTACT DRAINING YELLOW URINE. REPORT GIVEN TO ANY JEFFRIES AT [facility]. PT. TRANSPORT ARRIVED. CALLED AND NOTIFIED ANY JEFFRIES THAT PT. TRANSPORT ARRIVED AND PT. IS LEAVING TO [facility] AT THIS TIME. PT. LEFT THE FLOOR IN STABLE CONDITION VIA GURNEY ESCORTED BY FAMILY MEMBER AND EMT'S AT 2313.
== END 2018-12-23 23:20 | disposition short-term general hospital (02) | DRG 280 ==
LOC: ER 16:22 → TELE1 18:24 → ICU 12-20 12:35 → TELE1 12-21 10:56 → TELE-TD 12-21 14:06 → TELE1 12-22 19:12
PROVIDERS: ADMIT Internal Medicine; ATTEND Internal Medicine
DX: I08.0 Rheumatic disorders of both mitral and aortic valves (principal); N17.0 Acute kidney failure with tubular necrosis; I21.A1 Myocardial infarction type 2; J96.91 Respiratory failure, unspecified with hypoxia; I50.31 Acute diastolic (congestive) heart failure; G90.8 Other disorders of autonomic nervous system; I10 Essential (primary) hypertension; Z86.73 Personal history of transient ischemic attack (TIA), and cerebral infarction without residual deficits; K44.9 Diaphragmatic hernia without obstruction or gangrene; Z95.2 Presence of prosthetic heart valve; I25.2 Old myocardial infarction; R13.10 Dysphagia, unspecified; Z88.2 Allergy status to sulfonamides; Z90.49 Acquired absence of other specified parts of digestive tract; Z79.899 Other long term (current) drug therapy; I27.20 Pulmonary hypertension, unspecified; E86.0 Dehydration; I11.0 Hypertensive heart disease with heart failure
CPT/HCPCS: 36415; 36600; 70450-TC; 71045-TC; 80048-TC; 80053-TC; 80061-TC; 81000-TC; 82550-TC; 82570-TC; 82962-TC; 83605-TC; 83735-TC; 84100-TC; 84155-TC; 84300-TC; 84484-TC; 85025-TC; 87081-TC; 87086-TC; 87186-TC; 93880-TC; 93970-TC; G0378; J1940; J3490; J7030